=== PATIENT | female | born 1955 | race Caucasian/White ===

== ENCOUNTER 2020-08-12 08:49 | Emergency (ER) | payer MEDICARE, OTHER ==
[~2020-08-12] VITALS: Ht 165.1 cm; Wt 77.1 kg
[~2020-08-12 08:49] MED LIST: LISINOPRIL40 MG PO; PRILOSEC20 MG PO; UNKNOWN HTN MED PO; ZOFRAN4 MG PO
--- NOTE | 2020-08-13 05:36 | EKG ---
[facility] [address] [facility] [place] [address] Signed Normal sinus rhythm Left bundle branch block Abnormal ECG When compared with ECG of 12-AUG-2020 08:33, (Unconfirmed) Vent. rate has decreased BY 41 BPM Left bundle branch block is now present Criteria for Inferior infarct are no longer present Confirmed by BERNICE ROSE MD ([id number]) on 08/13/2020 5:36:28 AM Electronically Signed By: BERNICE ROSE MD 08/13/20 0536 PATIENT NAME: TONEI GONZALEZ Electrocardiogram DATE OF : 53 PHYSICIAN: BERNICE ROSE MD REPORT #: [id number] REPORT IS CONFIDENTIAL AND NOT TO BE RELEASED WITHOUT AUTHORIZATION
== END 2020-08-12 13:17 | disposition home or self-care (01) ==
LOC: ED 08:49
DX: R07.9 Chest pain, unspecified (principal); I10 Essential (primary) hypertension; Z88.0 Allergy status to penicillin
CPT/HCPCS: 71045; 80053; 83735; 84484; 85025; 93005; 93010; 99285-25

== ENCOUNTER 2023-06-09 07:09 | Day surgery (SDC) | payer MEDICARE, OTHER ==
[~2023-06-09] VITALS: Ht 165.1 cm; Wt 81.4 kg
[~2023-06-09 07:09] MED LIST changes: +ACID REDUCER10 MG PO; +AIRBORNE TABLE1 EACH PO; +LISINOPRIL10 MG PO
[2023-06-09 07:29] VITALS: BP 137/70
--- NOTE | 2023-06-09 09:13 | NUR ---
06/09/23 0913 Cheyanne Quinteros 0901 PT ARRIVED TO PACU SLEEPY, RESPONDS TO STIMULI, MAINTAINING SAO2 >99% ON 2 L O2.
[2023-06-09 09:32] VITALS: BP 118/62
--- NOTE | 2023-06-09 10:11 | OR ---
[facility] [address] [place], [place] [address] Signed DATE OF OPERATION: 06/09/2023 SURGEON: Adelfo Shelton MD PREOPERATIVE DIAGNOSIS: Screening. POSTOPERATIVE DIAGNOSES: 1. 4 mm polyp at 8 cm in the rectum. 2. Minimal to moderate sigmoid diverticulosis. 3. Tortuous sigmoid colon. 4. Minimal internal hemorrhoids. PROCEDURE: Colonoscopy with hot biopsy. ESTIMATED BLOOD LOSS: None. INDICATIONS: Tonie is a 67-year-old female, who is originally from [place]. [place]. Her had and she is now catching up on her own healthcare issues. She presented as a referral to the office for her initial screening colonoscopy. Her daughter came with her. She has no lower GI complaints. There is no family history of colon cancer or polyps. In the office, I gave her a pamphlet on colonoscopy. She actually speaks and reads Irish very well. There is risk including, but not limited to gas bloating, crampy abdominal pain, bleeding, perforation requiring surgery, and missed diagnosis. We also reviewed the need for IV conscious sedation. She had expressed understanding and wished to proceed. PROCEDURE NOTE: Tonie was taken into our endoscopy suite and placed in the left lateral decubitus position. She was given IV sedation with 9 mg of Versed and 200 mcg of fentanyl. She is very close to needing monitored anesthesia care mainly because her sigmoid colon is so tortuous. A digital rectal exam was performed. She has a very small anal canal. I actually had to use my 5th digit rather my index finger. There were no external hemorrhoids. She had good sphincter tone. There were no masses. The adult colonoscope was then introduced and advanced under direct visualization of the camera. Again, she has a tortuous sigmoid colon and it took a little bit at time, extra sedation, and abdominal compression to get through this area. We eventually got in the left colon and Electronically Signed By: ADELFO SHELTON MD 06/09/23 1011 PATIENT NAME: TONIE GONZALEZ OPERATIVE REPORT DATE OF : 53 REPORT #: [id number] PHYSICIAN: ADELFO SHELTON MD PCP: JACINTA GENAO DO REPORT IS CONFIDENTIAL AND NOT TO BE RELEASED WITHOUT AUTHORIZATION [facility] [address] [place], [place] [address] Signed then the scope passed quite nicely to the cecum. Her prep was quite good. We had taken pictures throughout for photodocumentation. We could easily see the appendiceal orifice and the ileocecal valve. The scope was slowly withdrawn. She had diverticula in the sigmoid colon. They are moderate in size, few in number and scattered about. She had just a small 4 mm polyp in the rectum at about 8 cm. It was easily removed with the help of the hot biopsy forceps. Upon retroflexion of the scope, she has minimal internal hemorrhoid tissue. After this, the gas was suctioned out and colonoscope removed. Overall, Tonie tolerated the procedure well. RECOMMENDATIONS: Tonie will follow up my office in 7 to 14 days to review her results. She might consider monitored anesthesia care in the future mainly because of her tortuous sigmoid colon. Adelfo Shelton MD ALB/MODL /[id number] cc: MD Nicole De Oliveira MD Copies: ADELFO SHELTON MD ~ Electronically Signed By: ADELFO SHELTON MD 06/09/23 1011 PATIENT NAME: TONIE GONZALEZ OPERATIVE REPORT DATE OF : 53 REPORT #: [id number] PHYSICIAN: ADELFO SHELTON MD PCP: JACINTA GENAO DO REPORT IS CONFIDENTIAL AND NOT TO BE RELEASED WITHOUT AUTHORIZATION
--- NOTE | 2023-06-15 15:31 | PATH ---
[facility] [address] [facility] [place] [address] Signed SPECIMEN(S): A RECTAL POLYP AT 8 CM SPECIMEN SOURCE: A. RECTAL POLYP AT 8 CM CLINICAL HISTORY: Colonoscopy FINAL PATHOLOGIC DIAGNOSIS: Rectal polyp at 8 cm: - Hyperplastic polyp (one fragment). JVR:cml MICROSCOPIC EXAMINATION: Histologic sections of all submitted blocks are examined by light microscopy. These findings, together with the gross examination, support the pathologic diagnosis. GROSS DESCRIPTION: The specimen, labeled and designated "Monica Rowland, colon, rectum polypectomy at 8 cm," is received in formalin and consists of 1 banks-brown soft tissue fragment measuring 0.2 x 0.3 cm and is submitted entirely in (A1). MMA (under the direct supervision of a pathologist) The Gross Description was prepared using a voice recognition system. The report was reviewed for accuracy; however, sound-alike word errors, addition and/or deletions may occur. If there is any question about this report, please contact Client Services. PERFORMING LABORATORY: Technical component was performed by [facility], [address] [place] [id number] (CLIA# [id number]). Professional interpretation was performed by [facility], [address] [place] [id number] (CLIA#: [id number]). Diagnostician: Arya Jaimes MD Pathologist Electronically Signed 06/15/2023 Copies: PATIENT NAME: TONIE ROWLAND PATHOLOGY DATE OF : 53 REPORT #: [id number] PHYSICIAN: [facility] PCP: NO PRIMARY CARE PHYSICIAN REPORT IS CONFIDENTIAL AND NOT TO BE RELEASED WITHOUT AUTHORIZATION [address] [address] Signed ~ PATIENT NAME: TONIE ROWLAND PATHOLOGY DATE OF : 53 REPORT #: [id number] PHYSICIAN: [facility] PCP: NO PRIMARY CARE PHYSICIAN REPORT IS CONFIDENTIAL AND NOT TO BE RELEASED WITHOUT AUTHORIZATION
== END 2023-06-09 09:55 | disposition home or self-care (01) ==
LOC: OPS 07:09 → DS 07:09 → OPS 08:15
PROVIDERS: ATTEND Colon & Rectal Surgery
PROC: 0DBP8ZX Excision of Rectum, Via Natural or Artificial Opening Endoscopic, Diagnostic (ICD-10-PCS; principal; 2023-06-09 08:15)
DX: Z12.11 Encounter for screening for malignant neoplasm of colon (principal); K62.1 Rectal polyp; K57.30 Diverticulosis of large intestine without perforation or abscess without bleeding; K64.8 Other hemorrhoids; I10 Essential (primary) hypertension; I25.2 Old myocardial infarction; E66.9 Obesity, unspecified; Z68.29 Body mass index [BMI] 29.0-29.9, adult
CPT/HCPCS: 88305; 99153; G0500; J2250; J3010; J7121